=== PATIENT | male | born 1990 | race Caucasian/White ===

== ENCOUNTER 2022-07-19 19:05 | Emergency (ER) | payer OTHER ==
[~2022-07-19] VITALS: Ht 177.8 cm; Wt 93.4 kg
== END 2022-07-20 05:11 | disposition home or self-care (01) ==
LOC: ED 19:05
DX: Z03.821 Encounter for observation for suspected ingested foreign body ruled out (principal)
CPT/HCPCS: 70360; 71045; 99283-25